=== PATIENT | female | born 1970 | race Caucasian/White ===

== ENCOUNTER 2019-09-17 14:56 | Emergency (ER) | payer SELFPAY ==
[2019-09-17] MEDS ORDERED: LISINOPRIL 5 MG TABLET PO ONE (16:19)
[2019-09-17] MEDS ORDERED: IBUPROFEN 800 MG TABLET PO ONE (16:20)
--- NOTE | 2019-09-17 16:23 | ER Document Report ---
ED Medical Screen (RME) - General Chief Complaint: Headache Stated Complaint: HIGH BLOOD PRESSURE Time Seen by Provider: 09/17/19 16:15 Primary Care Provider: POOJA RAY [Primary Care Provider] - Follow up as needed Mode of Arrival: Ambulatory Information source: Patient Notes: 49-year-old female with history of high blood pressure and migraines presents emergency department with reports of high blood pressure today. Patient reports he used to take lisinopril but was taken off the lisinopril because it bottoms her out. Patient reports she went to donate plasma today and noticed her blood pressure was triple over for triple. She reports this never been that high. She reports she has a slight pressure headache yesterday and today. No complaints of chest pain vomiting. I have greeted and performed a rapid initial assessment of this patient. A comprehensive ED assessment and evaluation of the patient, analysis of test results and completion of the medical decision making process will be conducted by additional ED providers. TRAVEL OUTSIDE OF THE [place] IN LAST 30 DAYS: No - Related Data Allergies/Adverse Reactions: acetaminophen [From Percocet] Allergy (Severe, Verified 09/17/19 16:12) vomit,itch egg [Egg] Allergy (Severe, Verified 09/17/19 16:12) SEVERE DIARRHEA kiwi [Kiwi (Actinidia Chinensis)] Allergy (Severe, Verified 09/17/19 16:12) Blisters latex [Latex] Allergy (Severe, Verified 09/17/19 16:12) hives,wheeze levofloxacin [From Levaquin] Allergy (Severe, Verified 09/17/19 16:12) hands go numb morphine [Morphine] Allergy (Severe, Verified 09/17/19 16:12) vomit,itch,hives oxycodone HCl [From Percocet] Allergy (Severe, Verified 09/17/19 16:12) vomit,itch Penicillins Allergy (Severe, Verified 09/17/19 16:12) HIVES,WHEEZING Tuberculin,Ppd,Multi-Puncture [From Tuberculin PPD Olya Test] Allergy (Severe, Verified 09/17/19 16:12) Hives cillins Allergy (Severe, Uncoded 09/17/19 16:12) hives,wheeze pink gloves [facility] Allergy (Severe, Uncoded 09/17/19 16:12) Generalized Itching Home Medications: no home meds Past Medical History - Social History Chew tobacco use (# tins/day): No Frequency of alcohol use: None Drug Abuse: None - Past Medical History Cardiac Medical History: Reports: Hx Hypertension - contr w/ meds Denies: Hx Coronary Artery Disease, Hx Heart Attack Pulmonary Medical History: Reports: Hx Asthma Denies: Hx Bronchitis, Hx COPD, Hx Pneumonia Neurological Medical History: Denies: Hx Cerebrovascular Accident, Hx Seizures GI Medical History: Musculoskeltal Medical History: Reports Hx Arthritis Infectious Medical History: Past Surgical History: Denies: Hx Pacemaker Physical Exam - Vital signs Vitals: Temp Pulse Resp BP Pulse Ox 97.6 F 119 H 18 158/131 H 100 09/17/19 15:57 09/17/19 15:57 09/17/19 15:57 09/17/19 15:57 09/17/19 15:57 Course - Vital Signs Vital signs: Temp Pulse Resp BP Pulse Ox 97.6 F 119 H 18 158/131 H 100 09/17/19 15:57 09/17/19 15:57 09/17/19 15:57 09/17/19 15:57 09/17/19 15:57 Doctor's Discharge - Discharge Referrals: LOCALMD,NO [Primary Care Provider] - Follow up as needed
[2019-09-17 18:03] LABS: APPEARANCE,URINE SLIGHTLY-CLOUDY; BILIRUBIN,URINE NEGATIVE (NEGATIVE); COLOR,URINE YELLOW; GLUCOSE, URINE NEGATIVE (NEGATIVE); KETONES,URINE NEGATIVE (NEGATIVE); LEUKOCYTE ESTERASE,URINE NEGATIVE (NEGATIVE); NITRITE,URINE NEGATIVE (NEGATIVE); PROTEIN,URINE 30 mg/dL (NEGATIVE); URINE SPECIFIC GRAVITY 1.021; UROBILINOGEN,URINE NEGATIVE mg/dL (<2.0)
[2019-09-17 18:13] LABS: ALBUMIN 3.9 g/dL (3.5-5.0); ALKALINE PHOSPHATASE 90 U/L (38-126); ANION GAP 11 (5-19); ASPARTATE AMINO TRANSFERASE 40 U/L (14-36); BILIRUBIN,DIRECT 0.2 mg/dL (0.0-0.4); BILIRUBIN,TOTAL 0.3 mg/dL (0.2-1.3); BLOOD UREA NITROGEN 11 mg/dL (7-20); CALCIUM 9.6 mg/dL (8.4-10.2); CARBON DIOXIDE 25 mmol/L (22-30); CHLORIDE 102 mmol/L (98-107); GLUCOSE 126 mg/dL (75-110); POTASSIUM 3.7 mmol/L (3.6-5.0)
[2019-09-17 18:14] LABS: ABSOLUTE BASOPHILS # (AUTO) 0.1 10^3/uL (0.0-0.2); ABSOLUTE EOSINOPHILS # (AUTO) 0.2 10^3/uL (0.0-0.6); ABSOLUTE LYMPHOCYTES (AUTO) 1.9 10^3/uL (0.5-4.7); ABSOLUTE NEUT (AUTO) 8.8 10^3/uL (1.7-8.2); BASOPHILS % (AUTO) 1.1 % (0-2); EOSINOPHILS % (AUTO) 1.7 % (0-6); HEMATOCRIT 50.6 % (36.0-47.0); HEMOGLOBIN 17.2 g/dL (12.0-15.5); LYMPHOCYTES % (AUTO) 15.5 % (13-45); MEAN CORPUSCULAR HEMOGLOBIN 31.7 pg (27.0-33.4); MEAN CORPUSCULAR VOLUME 93 fl (80-97); MONOCYTES % (AUTO) 8.3 % (3-13); PLATELET COUNT 281 10^3/uL (150-450); RED BLOOD COUNT 5.42 10^6/uL (3.72-5.28); RED CELL DISTRIBUTION WIDTH 13.1 % (11.5-14.0); SEGMENTED NEUTROPHILS % (AUTO) 73.4 % (42-78); TOTAL CELLS COUNTED % (AUTO) 100 %; WHITE BLOOD COUNT 11.9 10^3/uL (4.0-10.5)
[2019-09-17] MEDS ORDERED: NORMAL SALINE 1000 ML 1,000 ML IV ONE (22:07)
--- NOTE | 2019-09-17 22:25 | ER Document Report ---
ED General - General Chief Complaint: Headache Stated Complaint: HIGH BLOOD PRESSURE Time Seen by Provider: 09/17/19 16:15 Mode of Arrival: Ambulatory Notes: Patient is a 49-year-old female that comes emergency department for chief complaint of a headache and concerns about her blood pressure. She states she had a headache last night, this resolved, she went donated plasma, she states that after donating plasma she developed a pressure headache and she again noticed her blood pressure was high so she came in for evaluation. She denies vomiting, she received ibuprofen and 5 mg of lisinopril in triage and she states she currently does not have a headache. She also states that she has had a worsening cough which has become productive over the past 1.5 weeks. She denies head injury, fever, difficulty breathing, and she is not on any current medications. She does have a history of hypertension and migraine headaches, states she used to have Fioricet at home for headaches and used to be on 5 mg of lisinopril daily but she is not on this currently. She is not a smoker, she denies recreational drugs, denies medical history otherwise. TRAVEL OUTSIDE OF THE [place] IN LAST 30 DAYS: No - Related Data Allergies/Adverse Reactions: acetaminophen [From Percocet] Allergy (Severe, Verified 09/17/19 16:12) vomit,itch egg [Egg] Allergy (Severe, Verified 09/17/19 16:12) SEVERE DIARRHEA kiwi [Kiwi (Actinidia Chinensis)] Allergy (Severe, Verified 09/17/19 16:12) Blisters latex [Latex] Allergy (Severe, Verified 09/17/19 16:12) hives,wheeze levofloxacin [From Levaquin] Allergy (Severe, Verified 09/17/19 16:12) hands go numb morphine [Morphine] Allergy (Severe, Verified 09/17/19 16:12) vomit,itch,hives oxycodone HCl [From Percocet] Allergy (Severe, Verified 09/17/19 16:12) vomit,itch Penicillins Allergy (Severe, Verified 09/17/19 16:12) HIVES,WHEEZING Tuberculin,Ppd,Multi-Puncture [From Tuberculin PPD Olya Test] Allergy (Severe, Verified 09/17/19 16:12) Hives cillins Allergy (Severe, Uncoded 09/17/19 16:12) hives,wheeze pink gloves [facility] Allergy (Severe, Uncoded 09/17/19 16:12) Generalized Itching Home Medications: no home meds Past Medical History - General Information source: Patient - Social History Smoking Status: Never Smoker Chew tobacco use (# tins/day): No Frequency of alcohol use: None Drug Abuse: None Lives with: Family Family History: Reviewed & Not Pertinent Patient has suicidal ideation: No Patient has homicidal ideation: No - Past Medical History Cardiac Medical History: Reports: Hx Hypertension - contr w/ meds Denies: Hx Coronary Artery Disease, Hx Heart Attack Pulmonary Medical History: Reports: Hx Asthma Denies: Hx Bronchitis, Hx COPD, Hx Pneumonia Neurological Medical History: Denies: Hx Cerebrovascular Accident, Hx Seizures GI Medical History: Musculoskeletal Medical History: Reports Hx Arthritis Infectious Medical History: Past Surgical History: Reports: Hx Section - x2, Hx Hysterectomy - 2011. Denies: Hx Pacemaker Review of Systems - Review of Systems Constitutional: See HPI EENT: No symptoms reported Cardiovascular: No symptoms reported Respiratory: See HPI Gastrointestinal: No symptoms reported Genitourinary: No symptoms reported Female Genitourinary: No symptoms reported Musculoskeletal: No symptoms reported Skin: No symptoms reported Hematologic/Lymphatic: No symptoms reported Neurological/Psychological: See HPI Physical Exam - Vital signs Vitals: Temp Pulse Resp BP Pulse Ox 97.6 F 119 H 18 158/131 H 100 09/17/19 15:57 09/17/19 15:57 09/17/19 15:57 09/17/19 15:57 09/17/19 15:57 - Notes Notes: GENERAL: Alert, interacts well. No acute distress. HEAD: Normocephalic, atraumatic. EYES: Pupils equal, round, and reactive to light. Extraocular movements intact. ENT: Oral mucosa somewhat dry, tongue midline. Oropharynx unremarkable. Airway patent. NECK: Full range of motion. Supple. Trachea midline. LUNGS: Clear to auscultation bilaterally, no wheezes, rales, or rhonchi. No respiratory distress. HEART: Tachycardia, normal rhythm, no murmur ABDOMEN: Soft, non-tender. Non-distended. Bowel sounds present in all 4 quadrants. GENITOURINARY: Deferred EXTREMITIES: Moves all 4 extremities spontaneously. No edema, normal radial and dorsalis pedis pulses bilaterally. No cyanosis. BACK: no cervical, thoracic, lumbar midline tenderness. No saddle anesthesia, normal distal neurovascular exam. Moves all extremities in full range of motion. NEUROLOGICAL: Alert and oriented x3. Normal speech. Cranial nerves II through XII grossly intact. PSYCH: Nonstop talking SKIN: Warm, dry, normal turgor. No rashes or lesions noted. Course - Re-evaluation Re-evalutation: Patient is smiling, talking, laughing, extremely animated. Very normal neurological exam, soft benign abdomen, clear lungs. She did initially have tachycardia and hypertension, however I suspect this is secondary to her donating plasma. After she received IV fluids her hypertension and her tachycardia resolved. However patient is determined to be back on her lisinopril 5 mg, because this is such a low dose, more of a protective dose, and because patient states that she will check her blood pressures at home and closely follow-up with primary care patient was provided with this. Patient also has a productive cough for couple of weeks, she declines initial evaluation however, she requesting antibiotics instead. She does have mild leukocytosis, she is not hypoxic, she has clear lungs. Patient is also requesting Fioricet for headache and she was provided with this. On evaluation patient has no headache, has no complaints. Reiterated follow-up instructions and return precautions. Patient states appreciation and agreement with plan. - Vital Signs Vital signs: Temp Pulse Resp BP Pulse Ox 97.9 F 77 19 137/81 H 99 09/18/19 00:27 09/18/19 00:27 09/18/19 00:27 09/18/19 00:27 09/18/19 00:27 - Laboratory Result Diagrams: 09/17/19 17:27 09/17/19 17:27 Laboratory results interpreted by me: 09/17/19 09/17/19 09/17/19 17:17 17:27 17:27 WBC 11.9 H RBC 5.42 H Hgb 17.2 H Hct 50.6 H Absolute Neuts (auto) 8.8 H Glucose 126 H AST 40 H Urine Protein 30 H - EKG Interpretation by Me Additional EKG results interpreted by me: EKG shows sinus rhythm at a rate of 98, QTC 435, no significant T wave inversions or ST segment changes in consecutive leads. QTC of 435. Discharge - Discharge Clinical Impression: Dehydration, Productive cough Headache Qualifiers: Headache type: unspecified Headache chronicity pattern: acute headache Intractability: not intractable Qualified Code(s): R51 - Headache Condition: Stable Disposition: HOME, SELF-CARE Additional Instructions: Your work-up indicates dehydration, you have been given replacement, this is most likely simply from donating plasma. Your blood pressure was elevated today, I recommend having this checked at home once or twice a day, doing this for about a week, then showing your primary care provider your results for additional management. Take antibiotic as prescribed as discussed for productive cough although this could be bronchitis and should simply resolve with time. Take Fioricet if needed for headaches, follow-up with your primary care provider for additional management of headaches as well. Return for any concerning symptoms including severe headache, vomiting, chest pain, inability to urinate, fever, or any other concerning or worsening symptoms. Prescriptions: Butalb/Acetaminophen/Caffeine [Fioricet (50-325-40 mg) Tablet] 1 tab PO Q4HP PRN #30 tab PRN Reason: Lisinopril [Prinivil 5 mg Tablet] 5 mg PO DAILY #30 tablet Azithromycin [Zithromax] 250 mg PO ASDIR #6 tablet
[2019-09-18] MEDS ORDERED: KETOROLAC TROMETHAMINE INJ/PF 30 MG/1 ML SDV IV ONE (00:13)
[2019-09-18 00:28] VITALS: BP 137/81
--- NOTE | 2019-09-18 09:36 | EKG REPORT ---
SEVERITY:- BORDERLINE ECG - SINUS RHYTHM PROBABLE LEFT ATRIAL ABNORMALITY MINIMAL ST DEPRESSION, DIFFUSE LEADS : Confirmed by: Violeta Porter 18-Sep-2019 09:35:47
== END 2019-09-18 00:27 | disposition home or self-care (01) ==
LOC: ER 14:56
DX: E86.0 Dehydration (principal); R05 Cough; R51 Headache; J45.909 Unspecified asthma, uncomplicated; Z79.899 Other long term (current) drug therapy; I10 Essential (primary) hypertension
CPT/HCPCS: 93005; 99284; 96361; 96374; 36415; 85025; 80053; 81001; 93010; J1885; J7030